=== PATIENT | female | born 1950 | race Caucasian/White ===

== ENCOUNTER 2021-10-27 14:34 | Inpatient (IN) | payer MEDICARE, OTHER ==
[~2021-10-27] VITALS: Ht 167.6 cm; Wt 61.7 kg
--- NOTE | 2021-10-27 14:38 | NUR ---
BIBPA FROM SNF FOR POSSIBLE UTI AND INCREASED CONFUSION X1DAY. PT IS A&OX2, ABLE TO STATE NAME AND WHERE SHE IS AT. ATTACHED TO MONITOR, VITALS ARE WITHIN NORMAL LIMITS. WARM BLANKET PROVIDED FOR COMFORT. AWAITING MD ORDERS.
[2021-10-27] MEDS ORDERED: IV NS 0.9% 1,000 ML BAG IV ONE (15:00)
--- NOTE | 2021-10-27 15:01 | NUR ---
URINE COLLECTED AND SENT
--- NOTE | 2021-10-27 15:06 | NUR ---
IV ESTABLISHED R AC 20G. LABS DRAWN AND COLLECTED AT BEDSIDE.
[2021-10-27 15:17] LABS: BILIRUBIN,URINE NEGATIVE (NEGATIVE); COLOR,URINE YELLOW (YELLOW); LEUKOCYTE ESTERASE ,URINE SMALL (NEGATIVE); NITRITE, URINE POSITIVE (NEGATIVE); PROTEIN,URINE NEGATIVE (NEGATIVE); UGLUCOSE NEGATIVE (NEGATIVE); UROBILINOGEN,URINE 0.2 EU/dL (0.2)
[2021-10-27] MEDS ORDERED: CLON0.5T4 PO (15:17)
[2021-10-27] MEDS ORDERED: BISA10SU11 RC (15:17)
[2021-10-27] MEDS ORDERED: MAGN400O6 PO (15:17)
[2021-10-27] MEDS ORDERED: CITA20TA16 PO (15:17)
[2021-10-27] MEDS ORDERED: ACET-868 PO (15:17)
[2021-10-27] MEDS ORDERED: NA P133E RC (15:17)
[2021-10-27] MEDS ORDERED: RISP0.2515 PO (15:17)
[2021-10-27 15:22] LABS: BASOPHILS % (AUTO) 0.5 % (0.0-2.0); EOSINOPHILS % (AUTO) 1.3 % (0.0-6.0); HEMATOCRIT 37 % (33-45); HEMOGLOBIN 12.4 g/dL (11.5-14.8); LYMPHOCYTES # (AUTO) 1.5 K/uL (0.8-4.8); LYMPHOCYTES % (AUTO) 30.8 % (20.0-44.0); MEAN CORPUSCULAR HGB CONC 34 g/dl (31.0-36.0); MEAN CORPUSCULAR VOLUME 95 fL (82-100); MONOCYTES # (AUTO) 0.6 K/uL (0.1-1.30); MONOCYTES % (AUTO) 11.8 % (2.0-12.0); NEUTROPHILS # (AUTO) 2.7 K/uL (1.8-8.9); NEUTROPHILS % (AUTO) 55.6 % (43.0-81.0); PLATELET COUNT (AUTO) 191 K/uL (150-450); RED BLOOD CELL COUNT(AUTO) 3.87 MIL/uL (4.0-5.2); WHITE BLOOD COUNT (AUTO) 4.8 K/uL (4.3-11.0)
[2021-10-27 15:39] LABS: BACTERIA,URINE Many /HPF (None Seen); RBC,URINE 0-2 /HPF (0-2); SQUAMOUS EPITHELIAL CELL,UR Few /HPF (None Seen)
[2021-10-27 15:44] LABS: THYROID STIMULATING HORMONE 0.491 uIU/mL (0.358-3.74)
[2021-10-27 15:54] LABS: CARBON DIOXIDE 31 mmol/L (21-32); CHLORIDE 102 mmol/L (98-107); CREATININE 0.9 mg/dL (0.6-1.3); GLUCOSE 90 mg/dL (74-106); POTASSIUM 4.2 mmol/L (3.5-5.1); SODIUM SERUM 141 mmol/L (136-145); UREA NITROGEN, BLOOD 17 mg/dL (7-18)
[2021-10-27 16:07] LABS: BILIRUBIN,DIRECT 0.1 mg/dL (0.0-0.2); BILIRUBIN,TOTAL 0.3 mg/dL (0.2-1.0)
[2021-10-27 16:08] LABS: ACETAMINOPHEN 4 ug/ml (10-30); ALANINE AMINOTRANSFERASE 45 U/L (12-78); ALBUMIN 3.5 g/dL (3.4-5.0); ALCOHOL, BLOOD < 3 mg/dL (0-0); ALKALINE PHOSPHATASE 75 U/L (46-116); ASPARTATE AMINOTRANSFERASE 56 U/L (15-37); TOTAL PROTEIN, SERUM 6.7 g/dL (6.4-8.2)
--- NOTE | 2021-10-27 16:50 | NUR ---
CALLED GURU SPRAGUE... CALLED JEROMY LOVE
--- NOTE | 2021-10-27 17:45 | NUR ---
MOVE SHEET SUBMITTED.
[2021-10-27] MEDS ORDERED: CEPHALEXIN MONOHYDRATE 500 MG CAPSULE PO ONE ×2 (18:00→18:09)
[2021-10-27] MEDS ORDERED: HALOPERIDOL LACTATE INJ 5 MG/ML VIAL IM ONE (18:00)
[2021-10-27] MEDS ORDERED: HALOPERIDOL LACTATE INJ 5 MG/ML VIAL ONE (18:09)
--- NOTE | 2021-10-27 19:48 | NUR ---
COVID SWAB COLLECTED AND SENT TO LAB
--- NOTE | 2021-10-27 21:02 | NUR ---
REPORT GIVEN TO ALIDA SLOAN FOR BOBY
[2021-10-27] MEDS ORDERED: MAG HYDROX/AL HYDROX/SIMETH 30 ML UDC PO PRN (22:00)
[2021-10-27] MEDS ORDERED: ACETAMINOPHEN 325 MG TABLET PO PRN (22:00)
[2021-10-27] MEDS ORDERED: BLOOD SUGAR DIAGNOSTIC 1 EACH STRIP IN ONE (22:00)
[2021-10-27] MEDS ORDERED: MAGNESIUM HYDROXIDE 30 ML UDC PO PRN (22:00)
--- NOTE | 2021-10-27 23:14 | NUR ---
RN-ADMISSION NOTES ADMITTED A 71 Y.O FEMALE PATIENT FROM [facility]. PATIENT ON [address] AYALA ( PSYCHIATRIST) MADE AWARE OF THE PATIENT ADMISSION WITH STANDING ORDERS. UPON FACE TO FACE ASSESSMENT WITH THE PATIENT PATIENT IS POOR HISTORIAN ALERT TO NAME ONLY. PATIENT IS ANXIOUS NEEDS FREQUENT REDIRECTIONS AND MONITORING FOR SAFETY. PATIENT'S SON RADHA LANDIS ([phone] ) WAS MADE AWARE OF THE ADMISSION. CONTRABAND AND SKIN ASSESSMENT DONE. PATIENT WAS ORIENTED IN HER ROOM . BED ALARM WAS ON. WILL CONT. MONITORING FOR SAFETY AND BEHAVIOR.
[2021-10-28 02:00] VITALS: BP 113/63
[2021-10-28] MEDS: TEMAZEPAM 7.5 MG CAPSULE PO PRN ×2 (02:29→21:32)
--- NOTE | 2021-10-28 05:45 | NUR ---
RN-NOTES PATIENT UP IN THE LETI CHAIR AWAKE,ALERT, SLEEPING ON AND OFF FOR SHORT PERIOD DESPITE SLEEPING MED. GIVEN. ALL NEEDS ATTENDED AND ANTICIPATED. WILL CONT. MONITORING FOR SAFETY AND BEHAVIOR. WILL ENDORSE TO INCOMING SHIFT FOR CONTINUITY OF CARE.
[2021-10-28 07:54] LABS: CHOLESTEROL 181 mg/dL (<200); HDL CHOLESTEROL 56 mg/dL (40-60); LDL 100 mg/dL (0-99); TRIGLYCERIDES 112 mg/dL (30-150)
[2021-10-28 08:00] VITALS: BP 125/99
[2021-10-28 08:00] LABS: ALBUMIN 3.8 g/dL (3.4-5.0); BILIRUBIN,TOTAL 0.5 mg/dL (0.2-1.0); CALCIUM, SERUM 9.2 mg/dL (8.5-10.1); CREATININE 0.8 mg/dL (0.6-1.3); POTASSIUM 3.7 mmol/L (3.5-5.1); TOTAL PROTEIN, SERUM 7.3 g/dL (6.4-8.2)
--- NOTE | 2021-10-28 09:30 | NUR ---
RN Notes: Received pt. awake in the patel chair Pt. is confused and disoriented and denies being suicidal and denies plans of harming others. Pt. is with disorganized thought and unable to get pertinent information due to confusion. Pt. seen by the CLOUD AUTOMATION TESTER of Dr. Maria.. Ate 50% for breakfast with staff assistance. Pt. was reoriented to person, day, date, place and situation. Morning care rendered and will continue to monitor for safety
--- NOTE | 2021-10-28 09:58 | NUR ---
Treatment Plan: Pt refused to sign treatment plan and is very confused.
--- NOTE | 2021-10-28 09:58 | NUR ---
KYLIE Initial Discharge Plan: Patient currently resides at [facility] located at [address] [place] [id number] . KYLIE spoke with Kendy tolentino ([phone]) who stated that pt is welcomed back upon dc. KYLIE will coordinate appropriate discharge with family, pt, and MD.
--- NOTE | 2021-10-28 09:59 | NUR ---
Clinical Note: Pt placed on a 5150 hold for danger to others and GD. Pt was striking out at staff at her facility and was not cooperative. Patient currently resides at [facility] located at [address] [place], [place] [id number] . KYLIE spoke with Kendy tolentino ([phone]) who stated that pt is welcomed back upon dc. KYLIE will coordinate appropriate discharge with family, pt, and MD.
--- NOTE | 2021-10-28 10:12 | NUR ---
KYLIE Family Contact: SW spoke with pt's son Cam ([phone]) and notified of pt's admission and discussed treatment/discharge plan. He was aware and stated when pt stated she should return back to [facility].
[2021-10-28] MEDS: risperiDONE 1 MG TABLET PO SCH ×2 (10:27→16:16)
[2021-10-28] MEDS: CITALOPRAM HYDROBROMIDE 20 MG TABLET PO SCH (10:27)
--- NOTE | 2021-10-28 14:18 | NUR ---
Dr. Santizo in the unit and seen pt. and reminded to reconcile the meds.
--- NOTE | 2021-10-28 15:17 | NUR ---
Den POLICY ANALYST made of the EKG result and no new order.
[2021-10-28 16:00] VITALS: BP 110/59
[2021-10-28] MEDS: clonazePAM 0.5 MG TABLET PO PRN (16:16)
[2021-10-28] MEDS ORDERED: BISACODYL SUPP (10 MG) 10 MG/SUPP.RECT SUPP.RECT RC PRN (17:00)
[2021-10-28] MEDS ORDERED: clonazePAM 0.5 MG TABLET PO SCH (17:00)
[2021-10-28] MEDS ORDERED: MAGNESIUM HYDROXIDE 30 ML UDC PO PRN (17:00)
--- NOTE | 2021-10-28 19:43 | NUR ---
GPS RN OPENING NOTES: RECEIVED PATIENT IN HALLWAY SITTING IN LETI CHAIR, AWAKE, A/O X1. MUMBLING SPEECH, PASSIVE, DISORIENTED, CONFUSED, COOPERATIVE. NO S/S OF DISTRESS. RESPIRATION EVEN AND UNLABORED WITH EQUAL RISE AND FALL OF THE CHEST, ON ROOM AIR. OFFERED FLUID AND SNACKS TOLERATED. WILL CONTINUE TO MONITOR Q15 FOR MOOD, SAFETY AND BEHAVIOR.
[2021-10-28 20:00] VITALS: BP 113/55
--- NOTE | 2021-10-28 21:38 | NUR ---
GPS RN NOTES: RESTORIL 15MG GIVEN PO FOR SLEEP AT 2132. WILL CONTINUE TO MONITOR
[2021-10-29] MEDS ORDERED: Z GUARD REMEDY 4 OZ OINT TP PRN (06:30)
[2021-10-29] MEDS ORDERED: Z GUARD REMEDY 4 OZ OINT TP SCH (06:30)
--- NOTE | 2021-10-29 06:34 | NUR ---
GPS RN CLOSING NOTES: PATIENT IS CURRENTLY SLEEPING IN BED. PATIENT SLEPT 0HRS THIS SHIFT EVEN THOUGH PATIENT HAD 15MG OF RESTORIL FOR SLEEP. NO S/S OF DISTRESS. RESPIRATION EVEN AND UNLABORED WITH EQUAL RISE AND FALL OF THE CHEST, ON ROOM AIR. ALL PATIENT CARE NEEDS HAVE BEEN MET ANTICIPATED. BED IN LOW LOCKED POSITION, SIDE RAILS UP X2 FOR SAFETY. CALL FRAIRE WITHIN REACH. WILL CONTINUE TO MONITOR Q15 FOR SAFETY, MOOD AND BEHAVIOR AND ENDORSE TO AM SHIFT.
[2021-10-29 08:00] VITALS: BP 110/59
[2021-10-29] MEDS: CITALOPRAM HYDROBROMIDE 20 MG TABLET PO SCH (09:05)
[2021-10-29] MEDS: risperiDONE 1 MG TABLET PO SCH ×2 (09:07→17:21)
[2021-10-29 16:00] VITALS: BP 100/63
--- NOTE | 2021-10-29 19:40 | NUR ---
GPS RN OPENING NOTES: RECEIVED PATIENT IN HALLWAY SITTING IN LETI CHAIR, AWAKE, A/O X1. MUMBLING SPEECH, TALKING TO SELF, RESTLESS, ANXIOUS, DISORIENTED, CONFUSED, UNABLE TO FOLLOW REDIRECTION. NO S/S OF DISTRESS. RESPIRATION EVEN AND UNLABORED WITH EQUAL RISE AND FALL OF THE CHEST, ON ROOM AIR. OFFERED FLUID AND SNACKS TOLERATED. WILL CONTINUE TO MONITOR Q15 FOR MOOD, SAFETY AND BEHAVIOR.
[2021-10-29] MEDS: clonazePAM 0.5 MG TABLET PO PRN (20:02)
[2021-10-29 20:04] VITALS: BP 116/67
--- NOTE | 2021-10-29 20:06 | NUR ---
GPS RN NOTES: PATIENT IS RESTLESS, ANXIOUS, BANGING ON LETI CHAIR, REFFUSING REDIRECTION. KLONOPIN 0.5MG 1TAB GIVEN PO AT 2002. WILL CONTINUE TO MONITOR.
[2021-10-29] MEDS: ACETAMINOPHEN 325 MG TABLET PO PRN (21:17)
--- NOTE | 2021-10-29 21:18 | NUR ---
GPS RN NOTES: TYLENOL 650MG GIVEN PO FOR BACK PAIN AT 2116. WILL CONTINUE TO MONITOR.
[2021-10-29] MEDS: SULFAMETH/TRIMETH 800/160 MG 1 UDTAB TABLET PO SCH (21:29)
[2021-10-29] MEDS: TEMAZEPAM 7.5 MG CAPSULE PO PRN (21:29)
--- NOTE | 2021-10-29 21:33 | NUR ---
GPS RN NOTES: RESTORIL 15MG GIVEN PO FOR SLEEP AT 2128. WILL CONTINUE TO MONITOR
--- NOTE | 2021-10-30 07:01 | NUR ---
GPS RN OPENING NOTES: PATIENT IS CURRENTLY SLEEPING. PATIENT SLEPT 9HRS THIS SHIFT. NO S/S OF DISTRESS. RESPIRATION EVEN AND UNLABORED WITH EQUAL RISE AND FALL OF THE CHEST, ON ROOM AIR. ALL PATIENT CARE NEEDS HAVE BEEN MET ANTICIPATED. WILL CONTINUE TO MONITOR Q15 FOR MOOD, SAFETY AND BEHAVIOR.
[2021-10-30 08:00] VITALS: BP 112/54
[2021-10-30] MEDS: CITALOPRAM HYDROBROMIDE 20 MG TABLET PO SCH (08:35)
[2021-10-30] MEDS: SULFAMETH/TRIMETH 800/160 MG 1 UDTAB TABLET PO SCH ×2 (08:36→21:32)
[2021-10-30] MEDS: risperiDONE 1 MG TABLET PO SCH ×2 (08:36→16:50)
[2021-10-30 16:00] VITALS: BP 105/63
[2021-10-30 20:29] VITALS: BP 103/63
[2021-10-30] MEDS: clonazePAM 0.5 MG TABLET PO PRN (21:47)
--- NOTE | 2021-10-30 21:49 | NUR ---
RN NOTES: PATIENT IS RESTLESS, PARANOID, ANXIOUS, BANGING ON LETI CHAIR,NONREDIRECTABLE, REFUSING REDIRECTION. PRN KLONOPIN 0.5MG PO GIVEN, WILL CONTINUE TO MONITOR.
--- NOTE | 2021-10-31 06:46 | NUR ---
RN NOTES: PATIENT IN BED RESTING. NO S/SX OF ACUTE DISTRESS NOTED. PT. 9 HOURS OF SLEEP EASILY AGITED , NO VERBALIZATION OF THOUGHTS AND FEELINGS. SAFETY PRECAUTIONS IN PLACE. WILL CONTINUE TO MONITOR Q15MIN ROUNDS FOR SAFETY AND BEHAVIOR.
[2021-10-31 08:00] VITALS: BP 99/57
[2021-10-31] MEDS: CITALOPRAM HYDROBROMIDE 20 MG TABLET PO SCH (08:43)
[2021-10-31] MEDS: SULFAMETH/TRIMETH 800/160 MG 1 UDTAB TABLET PO SCH ×2 (08:43→20:42)
[2021-10-31] MEDS: risperiDONE 1 MG TABLET PO SCH ×2 (08:44→17:11)
--- NOTE | 2021-10-31 10:04 | NUR ---
RN OPENING NOTE PATIENT AWAKE IN BED RESTING, A/O X 1, CONFUSED. NO S/S OF PAIN NOTED AT THIS TIME. ON ROOM AIR, NO DISTRESS OR SHORTNESS OF BREATH NOTED. PATIENT IS COOPERATIVE AND COMPLIANT WITH MEDICATION. PATIENT DENIES SUICIDE IDEATION AND HOMICIDAL IDEATION AT THIS TIME. PATIENT HAS NO NEEDS AT THIS TIME. PATIENT EDUCATED ON THE USE OF THE CALL FRAIRE. FALL AND SAFETY MEASURES IN PLACE, BED ALARM ON, BED IN LOW AND LOCK POSITION, CALL LIGHT AND TABLE WITHIN EASY REACH, SIDE RAILS UP X2. WILL CONTINUE TO MONITOR Q15 MIN. WITH THE HELP OF STAFF TO MAINTAIN SAFETY.
[2021-10-31 16:00] VITALS: BP 101/62
--- NOTE | 2021-10-31 18:48 | NUR ---
RN CLOSING NOTE PATIENT AWAKE IN BED RESTING, A/O X 1, CONFUSED. NO S/S OF PAIN NOTED AT THIS TIME. ON ROOM AIR, NO DISTRESS OR SHORTNESS OF BREATH NOTED. PATIENT IS COOPERATIVE AND COMPLIANT WITH MEDICATION. ALL SCHEDULE MEDICATIONS ADMINISTERED. PATIENT DENIES SUICIDE IDEATION AND HOMICIDAL IDEATION AT THIS TIME. PATIENT HAS NO NEEDS AT THIS TIME. PATIENT EDUCATED ON THE USE OF THE CALL FRAIRE. FALL AND SAFETY MEASURES IN PLACE, BED ALARM ON, BED IN LOW AND LOCK POSITION, CALL LIGHT AND TABLE WITHIN EASY REACH, SIDE RAILS UP X2. WILL ENDORSE TO TOP ICER.
[2021-10-31 21:03] VITALS: BP 108/65
[2021-11-01] MEDS: TEMAZEPAM 7.5 MG CAPSULE PO PRN ×2 (00:31→22:12)
--- NOTE | 2021-11-01 00:32 | NUR ---
Pt unable to sleep and trying to climb out of bed. Restoril 7.5 mg 2 caps po prn given as ordered. Will continue to monitor.
--- NOTE | 2021-11-01 01:35 | NUR ---
Post 1 hr restoril effective. Pt asleep easy toarouse. Will continue to monitor. frequent visual check done for safety.
--- NOTE | 2021-11-01 07:29 | NUR ---
RN OPENING NOTE PATIENT AWAKE IN GERICHAIR, PATIENT IS ALERT AND CONFUSED. ON ROOM AIR, WITH EQUAL AND UNLABORED BREATHING WITH NO DISTRESS OR SHORTNESS OF BREATH NOTED. PATIENT DENIES PAIN AT THIS TIME. PATIENT DENIES SUICIDE IDEATION AND HOMICIDAL IDEATION AT THIS TIME. PATIENT HAS NO NEEDS AT THIS TIME. PATIENT EDUCATED ON THE USE OF THE CALL FRAIRE. FALL AND SAFETY MEASURES IN PLACE, BED ALARM ON, BED IN LOW AND LOCK POSITION, CALL LIGHT AND TABLE WITHIN EASY REACH, SIDE RAILS UP X2. WILL CONTINUE TO MONITOR
[2021-11-01 08:00] VITALS: BP 101/54
[2021-11-01] MEDS: CITALOPRAM HYDROBROMIDE 20 MG TABLET PO SCH (08:17)
[2021-11-01] MEDS: SULFAMETH/TRIMETH 800/160 MG 1 UDTAB TABLET PO SCH (08:17)
[2021-11-01] MEDS: risperiDONE 1 MG TABLET PO SCH ×2 (08:17→16:59)
--- NOTE | 2021-11-01 09:15 | NUR ---
RN NOTE DUE MEDICATIONS GIVEN. PATIENT IS COMPLIANT WITH MEDICATIONS. IN STABLE CONDITION.
--- NOTE | 2021-11-01 10:20 | NUR ---
RN NOTE SEEN BY BRINA LEVIN
[2021-11-01 16:00] VITALS: BP 130/63
--- NOTE | 2021-11-01 19:04 | NUR ---
RN CLOSING NOTE PATIENT AWAKE IN GERICHAIR, PATIENT IS ALERT AND CONFUSED. ON ROOM AIR, WITH EQUAL AND UNLABORED BREATHING WITH NO DISTRESS OR SHORTNESS OF BREATH NOTED. PATIENT DENIES PAIN AT THIS TIME. PATIENT DENIES SUICIDE IDEATION AND HOMICIDAL IDEATION AT THIS TIME. PATIENT REMAINS COMPLIANT WITH MEDICATION AND WITH NO UNTOWARD BEHAVIOR NOTED. PATIENT EDUCATED ON THE USE OF THE CALL FRAIRE. FALL AND SAFETY MEASURES IN PLACE, BED ALARM ON, BED IN LOW AND LOCK POSITION, CALL LIGHT AND TABLE WITHIN EASY REACH, SIDE RAILS UP X2. ENDORSED PATIENT TO NEXT SHIFT FOR CONTINUITY OF CARE.
--- NOTE | 2021-11-01 19:41 | NUR ---
GPS NURSES OPENING NOTES: RECEIVED PATIENT IN DINING ROOM SITTING IN LETI CHAIR, AWAKE, A/O X1. MUMBLING SPEECH, TALKING TO SELF, RESTLESS, ANXIOUS, DISORIENTED, CONFUSED, UNABLE TO FOLLOW REDIRECTION. NO S/S OF DISTRESS. RESPIRATION EVEN AND UNLABORED WITH EQUAL RISE AND FALL OF THE CHEST, ON ROOM AIR. OFFERED FLUID AND SNACKS TOLERATED. WILL CONTINUE TO MONITOR Q15 FOR MOOD, SAFETY AND BEHAVIOR.
[2021-11-01 20:00] VITALS: BP 123/60
[2021-11-01] MEDS: clonazePAM 0.5 MG TABLET PO PRN (21:10)
--- NOTE | 2021-11-02 06:18 | NUR ---
GPS NURSES CLOSING NOTES: PATIENT IS CURRENTLY LAYING ON BED, ASLEEP. PATIENT SLEPT 9HRS THIS SHIFT. NO S/S OF DISTRESS. RESPIRATION EVEN AND UNLABORED WITH EQUAL RISE AND FALL OF THE CHEST, ON ROOM AIR. ALL PATIENT CARE NEEDS HAVE BEEN MET ANTICIPATED. WILL CONTINUE TO MONITOR Q15 FOR SAFETY, MOOD AND BEHAVIOR AND ENDORSE TO AM SHIFT.
[2021-11-02 08:00] VITALS: BP 94/55
[2021-11-02 09:15] VITALS: BP 105/53
[2021-11-02] MEDS: CITALOPRAM HYDROBROMIDE 20 MG TABLET PO SCH (09:35)
[2021-11-02] MEDS: risperiDONE 1 MG TABLET PO SCH ×2 (09:35→17:17)
--- NOTE | 2021-11-02 10:41 | NUR ---
KYLIE Family Contact: KYLIE spoke with pt's son Cam ([phone]) notified stating pt will be discharged tomorrow 11/03/2021 back to [facility] and he was agreeable of this.
--- NOTE | 2021-11-02 13:56 | NUR ---
resting in bed asleep.never did eat lunch.
[2021-11-02 16:00] VITALS: BP 101/55
[2021-11-02 20:10] VITALS: BP 101/52
--- NOTE | 2021-11-02 20:50 | NUR ---
RN NOTES PT WAS NOTED ANXIOUS KLONOPIN 0.5MG WAS GIVEN.NO SIGN A/R NOTED.
[2021-11-02] MEDS: clonazePAM 0.5 MG TABLET PO PRN (20:52)
[2021-11-02] MEDS: ACETAMINOPHEN 325 MG TABLET PO PRN (20:52)
[2021-11-03] MEDS: TEMAZEPAM 7.5 MG CAPSULE PO PRN (00:04)
--- NOTE | 2021-11-03 07:59 | NUR ---
Court Hearing: Pt's court hearing for 5250 was today and it was upheld for GD.
--- NOTE | 2021-11-03 07:59 | NUR ---
Court Notification: Pts son Cam ([phone]) left a voicemail for court hearing.
--- NOTE | 2021-11-03 08:01 | NUR ---
Discharge Note: Pt will be discharged to [facility] located at [address] [place] [address] . Please arrange ambulance at 1PM. Pts son Cam ([phone]) is aware and agreeable of dc. Upon discharge, the pt appears to be in a dysphoric mood and presented with a congruent affect. Pt appears to be alert and oriented x2 (place, self). Pt denies both suicidal and homicidal ideation as well as auditory and visual hallucinations. Pt appears to be ambulatory with a steady gait Pt will be under the care of her psychiatrist, Dr. Huggins, located at [address] [facility] [address], [place] [address]; . Pt will be under the care of retort furnace helper, Dr. Vera, located at [address] [facility], [address] [address] . The choice of vendor form and multidisciplinary exit care form were done, printed, signed, and given to the patient. Addendum: 11/04/21 at 0758 by KYLIE DE LA ROSA Discharge was canceled due to facility not having a bed.
[2021-11-03] MEDS: risperiDONE 1 MG TABLET PO SCH ×2 (08:27→16:40)
[2021-11-03] MEDS: CITALOPRAM HYDROBROMIDE 20 MG TABLET PO SCH (08:27)
--- NOTE | 2021-11-03 14:25 | NUR ---
Discharged canceled by Anna PAEZ .PC HEARIND DONE .
[2021-11-03 16:00] VITALS: BP 120/62
[2021-11-03 20:00] VITALS: BP 114/62
[2021-11-03] MEDS: clonazePAM 0.5 MG TABLET PO PRN (20:37)
[2021-11-04] MEDS: TEMAZEPAM 7.5 MG CAPSULE PO PRN (01:58)
[2021-11-04] MEDS: ACETAMINOPHEN 325 MG TABLET PO PRN (01:58)
[2021-11-04] MEDS: clonazePAM 0.5 MG TABLET PO PRN (02:31)
--- NOTE | 2021-11-04 07:58 | NUR ---
SW Discharge Note: Pt will be discharged to [facility] located at [address] [place] [address] . Please arrange ambulance at 1PM. Pts son Cam ([phone]) is aware and agreeable of dc. Upon discharge, the pt appears to be in a dysphoric mood and presented with a congruent affect. Pt appears to be alert and oriented x2 (place, self). Pt denies both suicidal and homicidal ideation as well as auditory and visual hallucinations. Pt appears to be ambulatory with a steady gait Pt will be under the care of her psychiatrist, Dr. Huggins, located at [address] [facility] [address], [place] [address]; . Pt will be under the care of digital marketing assistant, Dr. Vera, located at [address] [facility], [address], [place] [address] . The choice of vendor form and multidisciplinary exit care form were done, printed, signed, and given to the patient.
[2021-11-04 08:00] VITALS: BP 121/57
--- NOTE | 2021-11-04 08:54 | NUR ---
Den Castillo DECORATING SUPERVISOR of Dr. Maria gave an order to D/C hold and D/C to [facility] and to follow up with psych and medical doctors. DECORATING SUPERVISOR reconciled meds to continue in the facility. Pt. without distress, denies suicidal and homicidal. Belongings ready, discharge papers ready.
[2021-11-04] MEDS: risperiDONE 1 MG TABLET PO SCH (09:28)
[2021-11-04] MEDS: CITALOPRAM HYDROBROMIDE 20 MG TABLET PO SCH (09:28)
--- NOTE | 2021-11-04 11:27 | NUR ---
Dr. Mcgee made aware of the discharge and reconciled meds. Report given to Allyssa over the facility.
--- NOTE | 2021-11-04 13:25 | NUR ---
Pt. left the unit via ambulance and transported via a gurney. Left without distress and no agitation. V/S taken: BP 102/52, NE 61, RR 18, temp 97.4 and oxygen sat 99%.
== END 2021-11-04 13:25 | DRG 885 ==
LOC: ER 14:49 → GPS 20:44
PROVIDERS: ADMIT Nurse Practitioner Psychiatric/Mental Health; ATTEND Internal Medicine
DX: F33.9 Major depressive disorder, recurrent, unspecified (principal); N39.0 Urinary tract infection, site not specified; G93.40 Encephalopathy, unspecified; F29 Unspecified psychosis not due to a substance or known physiological condition; F41.9 Anxiety disorder, unspecified; Z20.822 Contact with and (suspected) exposure to COVID-19; F20.9 Schizophrenia, unspecified; F03.90 Unspecified dementia, unspecified severity, without behavioral disturbance, psychotic disturbance, mood disturbance, and anxiety; B96.20 Unspecified Escherichia coli [E. coli] as the cause of diseases classified elsewhere; B96.1 Klebsiella pneumoniae [K. pneumoniae] as the cause of diseases classified elsewhere; I10 Essential (primary) hypertension; J44.9 Chronic obstructive pulmonary disease, unspecified; Z79.899 Other long term (current) drug therapy; Z73.6 Limitation of activities due to disability
CPT/HCPCS: 36415; 71045-TC; 80048-TC; 80053-TC; 80061-TC; 80076-TC; 81001; 82962-TC; 84443-TC; 85025-TC; 87081-TC; 87086-TC; 87186-TC; 97116-TC; 97530-TC; C9803; G0480; J1630; J7030